=== PATIENT | male | born 1995 | race African-American/Black ===

== ENCOUNTER 2018-01-24 20:24 | Emergency (ER) | payer MEDICAID ==
[~2018-01-24] VITALS: Ht 180.3 cm; Wt 95.7 kg
[2018-01-24 20:27] VITALS: Ht 180.3 cm; Wt 95.7 kg
[2018-01-24 22:07] VITALS: BP 145/88
== END 2018-01-24 22:07 | disposition home or self-care (01) ==
LOC: ED 20:24
DX: J45.901 Unspecified asthma with (acute) exacerbation (principal); J06.9 Acute upper respiratory infection, unspecified; Z76.0 Encounter for issue of repeat prescription; Z88.0 Allergy status to penicillin
CPT/HCPCS: J7512; J7613; J7644